=== PATIENT | female | born 1965 ===

== ENCOUNTER 2017-11-11 09:02 | Day surgery (SDC) | payer OTHER ==
[~2017-11-11 09:02] MED LIST: LIDOCAINE HCL 1% 5 ML ONE; PROPOFOL 500 MG/50 ML EMU IV ONE
[2017-11-11 10:47] VITALS: O2SAT 95
[2017-11-11 11:04] VITALS: BP 116/76; PULSE 63; RESP 20; TEMP 97
== END 2017-11-11 11:30 | disposition home or self-care (01) ==
LOC: SURG 09:02
PROVIDERS: ATTEND Surgery
DX: Z12.11 Encounter for screening for malignant neoplasm of colon (principal); K57.30 Diverticulosis of large intestine without perforation or abscess without bleeding
CPT/HCPCS: J2704

== ENCOUNTER 2018-06-09 07:13 | Day surgery (SDC) | payer OTHER ==
[2018-06-09] MEDS ORDERED: BUPIVACAINE/EPI 0.5% 10 ML SOL INFIL ONE ×2 (07:34)
[2018-06-09] MEDS ORDERED: ROCURONIUM BROMIDE 10 MG/ML SOL IV ONE (07:45)
[2018-06-09] MEDS ORDERED: SUCCINYLCHOLINE CHLORIDE 20 MG/ML SOL IV ONE (07:45)
[2018-06-09] MEDS ORDERED: LIDOCAINE HCL 1% MPF 30 SOL ONE (07:49)
[2018-06-09] MEDS ORDERED: PROPOFOL 10 MG/ML EMU IV ONE (07:49)
[2018-06-09] MEDS ORDERED: FENTANYL 100MCG/2ML SOL ONE ×2 (07:49→08:48)
[2018-06-09] MEDS ORDERED: NEOSTIGMINE METHYLSULFATE 1 MG/ML SOL ONE (08:12)
[2018-06-09] MEDS ORDERED: GLYCOPYRROLATE 0.2 MG/ML SOL ONE (08:51)
[2018-06-09 10:09] VITALS: RESP 20
[2018-06-09 13:00] VITALS: BP 163/83; PULSE 60; TEMP 97.4; O2SAT 94
== END 2018-06-09 10:50 | disposition home or self-care (01) ==
LOC: SURG 07:13
PROVIDERS: ATTEND Surgery
DX: K81.1 Chronic cholecystitis (principal)
CPT/HCPCS: 99001; J0330; J2710; J3010; J7643; J2001; J2704; J3490

== ENCOUNTER 2018-07-30 19:27 | Emergency (ER) | payer OTHER ==
[2018-07-30 19:53] VITALS: RESP 20
[2018-07-30] MEDS ORDERED: METOCLOPRAMIDE HYDROCHLORIDE 5 MG/ML SOL IV ONE (20:16)
[2018-07-30] MEDS ORDERED: SUMATRIPTAN SUCCINATE 6 MG/0.5 ML SOL SC ONE ×2 (20:16→20:19)
[2018-07-30] MEDS ORDERED: METOCLOPRAMIDE HYDROCHLORIDE 5 MG/ML SOL ONE (20:19)
[2018-07-30] MEDS: SODIUM CHLORIDE 0.9% 1000ML 1,000 ML IV SCH ×2 (20:32→21:37)
[2018-07-30] MEDS ORDERED: MORPHINE SULFATE 10 MG/ML SOL IV ONE (21:21)
[2018-07-30] MEDS ORDERED: ONDANSETRON HCL 4 MG/2 ML SOL IV ONE (21:21)
[2018-07-30] MEDS ORDERED: KETOROLAC TROMETHAMINE 30 MG/ML SOL IV ONE (21:21)
[2018-07-30] MEDS ORDERED: ONDANSETRON HCL 4 MG/2 ML SOL ONE (21:25)
[2018-07-30] MEDS ORDERED: MORPHINE SULFATE 10 MG/ML SOL ONE (21:25)
[2018-07-30] MEDS ORDERED: KETOROLAC TROMETHAMINE 30 MG/ML SOL ONE (21:25)
[2018-07-30 21:40] VITALS: BP 143/85; PULSE 65; TEMP 96.2; O2SAT 93
== END 2018-07-30 22:13 | disposition home or self-care (01) ==
LOC: ED 19:27
DX: G43.109 Migraine with aura, not intractable, without status migrainosus (principal)
CPT/HCPCS: 96365; 96366; 96372; 96374; 96375; 99283; 99285; J1885; J2270; J2405; J2765; J3030

== ENCOUNTER 2018-12-14 11:53 | Day surgery (SDC) | payer BC, OTHER ==
[2018-12-14] MEDS ORDERED: MIDAZOLAM 2 MG/2 ML SOL ONE ×3 (11:58→13:10)
[2018-12-14] MEDS: TROPICAMIDE 1% OPHTH SOL ONE ×3 (12:23→12:29)
[2018-12-14] MEDS: PHENYLEPHRINE HCL 10% OPHTHAL SOL ONE ×3 (12:23→12:29)
[2018-12-14] MEDS: CYCLOPENTOLATE 1% SOL ONE ×3 (12:23→12:29)
[2018-12-14] MEDS ORDERED: MOXIFLOXACIN-HOME SOL LEFTEYE ONE ×2 (12:24→12:27)
[2018-12-14] MEDS ORDERED: KETOROLAC/HOME 0.5% SOL LEFTEYE ONE ×3 (12:24→12:30)
[2018-12-14] MEDS: TETRACAINE HCL 0.5 % 1 DROP SOL ONE ×2 (12:30→13:02)
[2018-12-14] MEDS ORDERED: POVIDONE IODINE 5% SOL ONE (12:54)
[2018-12-14] MEDS ORDERED: BSS W/ 0.5 MG P.F. EPI 1 BOTTLE ONE (12:54)
[2018-12-14] MEDS: LIDOCAINE HCL 2% MPF 10 ML SOL ONE ×2 (13:03→13:07)
[2018-12-14] MEDS ORDERED: FENTANYL 100MCG/2ML SOL ONE (13:08)
[2018-12-14] MEDS ORDERED: ONDANSETRON HCL 4 MG/2 ML SOL ONE (13:09)
[2018-12-14] MEDS ORDERED: ACETAZOLAMIDE 250 MG PO ONE ×2 (13:10→13:25)
[2018-12-14 13:23] VITALS: BP 154/85; PULSE 60; RESP 20; TEMP 97.3; O2SAT 91
== END 2018-12-14 13:40 | disposition home or self-care (01) ==
LOC: SURG 11:53
PROVIDERS: ATTEND Ophthalmology
DX: H25.89 Other age-related cataract (principal)
CPT/HCPCS: J2250; J2405; J3010; A9270-GY